=== PATIENT | male | born 1975 | race Caucasian/White ===

== ENCOUNTER 2016-09-17 06:19 | Day surgery (SDC) | payer OTHER ==
--- NOTE | 2016-09-16 11:02 | PCM.ANEPRE ---
Anesthesia Pre-Op Review Reason for Review: BMI > 45 Anesthesia Recommendations: Proceed with Procedure Additional Comments 41y M with super morbid obesity, HTN, DM, OWEN scheduled for sural nerve biopsy. He has peripheral neuropathy causing decreased sensation to the level of the knees bilaterally R>L. No further w/u is indicated. Have patient bring CPAP with him. Heri Sharma MD Sep 16, 2016 11:02
[~2016-09-17] VITALS: Ht 172.7 cm; Wt 150.9 kg
[2016-09-17] MEDS: Lactated Ringer's 1,000 ML IV SCH ×2 (05:39→09:23)
[~2016-09-17 06:19] MED LIST: CHLO50TA PO; CeFAZolin Inj 2 GM in IV Premix 1 EACH IV ONE; CeFAZolin Inj 3 GM in IV Premix 1 EACH IV SCH; GABA-504 PO; IBUP800T28 PO; LISI-567 PO; METF1000 PO
[2016-09-17] MEDS ORDERED: Propofol 10,000 mCg/mL 20 mL Inj ONE (06:20)
[2016-09-17] MEDS ORDERED: Ketamine 10 mg/mL 20 mL Inj ONE (06:20)
[2016-09-17 07:27] VITALS: BP 155/91; PULSE 93; RESP 18; O2SAT 96
--- NOTE | 2016-09-17 07:50 | PCM.HPANE ---
Patient Data Surgeon Admitting Provider: Attending Provider:Raji Razo MD Primary Care Physician:Heri Moreau MD Other Provider:[facility] Reason for Visit Polyneuropathy Ht/WT & BMI Height (Feet): 5 Height (Inches): 8.00 Weight (Kilograms): 150.9 Body Mass Index 50.00 Allergies Coded Allergies: codeine (Verified Allergy, Severe, SWELLING, N&V, 09/15/16) Past Anesthesia History Anesthesia History: Denies:: Abnormal Airway, Anesthesia Reactions, Difficult Intubation, Malignant Hyperthermia Diabetes History Hx Diabetes?: Yes Type of Diabetes: Type II Glycemic Control: Oral Medication Current Bedside Blood Glucose: 107 MRSA MRSA: No Medications Hypertension Medication: Yes (LISINOPRIL,CHLORTHALIDONE) Home Meds Incl Beta [place]: No Reported Medications Lisinopril 20 Mg [id number] Mg PO DAILY 30 Days Ref 0 09/15/16 Ibuprofen 800 Mg [id number] Mg PO TID PRN For Pain Ref 0 09/15/16 Gabapentin 400 Mg [id number] Mg PO TID Ref 0 09/15/16 Chlorthalidone 50 Mg [id number] Mg PO DAILY 09/15/16 Discontinued Reported Medications Metformin (Glucophage)1,000 Mg Tablet1,000 Mg PO QPM Ref 0 09/15/16 History History of ENT Problems?: No Hx of Heart Problems?: Yes Cardiovascular History: Positive for:: Chest Pain (02/2004-PROB R/T URI/COUGH) Edema (LE) Hypertension Denies:: Heart Murmur Hx of Respiratory Problem?: Yes Respiratory History: Positive for:: Use of C-PAP Machine (OWEN+ W/ CPAP SLEEP STUDY 04/2016) Hx Neurologic Problems?: Yes Other Neurological Pertinent: POLYNEUROPATHY=CURRENT PROBLEM C/OF NEUROPATHY IN LEGS R>L, HANDS HX REFERRAL TO [facility] 01/2016 Hx of GI Problems?: Yes Other GI Pertinent History: OBESITY Hx of Problems?: No Male Hx: Denies:: Prostate Problems Scrotal Mass Testicular Surgery Skin History: Positive for:: History Skin Disorders? (ERYTHEMA LOWER LEGS) Denies:: Pressure Ulcers Hx Musculoskeletal Problems?: Yes Musculoskeletal History: Positive for:: Osteoarthritis (C/OF LT ANKLE ARTHROPATHY S/P CORTISONE INJ S/P LT KNEE MENISECTOMY) Denies:: Back Injury (C/OF BACK PAIN) Hx of Psycho/Social Problems?: No Hx Surgeries?: Yes (LT KNEE MENISECTOMY) Hx Any Other Health Problems?: Yes Other History: Denies:: Cancer Endocrine Disease Hospitalization Thyroid Disease History Blood Transfusions: Denies:: Blood Transfusions Hx Diabetes: YesBedside Blood Glucose: 107 Hx Alcohol Use: YesAlcoholic Drinks Per Day: 2/DAYHave You Smoked inLast 12 mo : NoApprox How Many Cigarettes/day: 20YR HX OF SMOKING Stop/Bang Treated for Sleep Apnea?: Yes Do You Have a CPAP Machine?: Yes S-Snoring: Do You Snore Loudly: Yes T-Tired: feel tired, fatigued: Yes O-Obsered: Observed not breath: Yes P-Blood Pressure: treated: Yes B- Body Mass Index > 35 kg/m2: Yes A- Age over 50: No N- Neck Large Circumference: Yes G- Gender Male: Yes OWEN Total Score: 7 OWEN Risk Assessment: High Risk, =/>3 Yes OWEN Category 4 OutPt Procedure: Yes Risk Assessment Category Category 1A: Patient has history of documented sleep apnea, and HAS NOT received any narcotic, sedative or anesthesia administration during this stay. Category 1B: Patient has history of documented sleep apnea, and HAS received any narcotic , sedative or anesthesia administration during this stay Category 2: Patient has SUSPECTED Obstructive Sleep Apnea, and HAS received any narcotic , sedative or anesthesia administration during this stay. Category 3: Patient has SUSPECTED Obstructive Sleep Apnea and HAS NOT received narcotic, sedative or anesthesia administration during this stay. Category 4: Outpatient in Procedural Areas with known sleep apnea or who screen positive for High Risk via the STOP/BANG questionnaire. Exam Exam Vital Signs Vital Signs Date Time Temp Pulse Resp B/P Pulse Ox O2 Delivery O2 Flow Rate FiO2 09/17/16 07:27 CPAP/BIPAP 09/17/16 07:27 36.4 93 18 155/91 96 Room Air General Appearance: Alert, Oriented X3, Cooperative, No Acute Distress HEENT/AIRWAY: MP 2 Lungs: Clear to Auscultation, Normal Air Movement Heart: Exam Unremarkable, Regular Rate/Rhythm, No Murmurs/Rubs/Gallops Meds/Labs/Diagnostics Admission Meds Current Medications Lactated Ringer's (Lr) 1,000 ml @ 120 mls/hr Q8H20M IV Last administered on t 05:39; Start 09/17/16 at 05:00; Stop 09/17/16 at 13:19 Bedside Blood Glucose: 107 Plan Impression Patient chart reviewed, patient interviewed and anesthestic plan with risks, benefits, and alternatives discussed, and informed consent obtained. NPO Status: 09/16 at 1600 ASA Physical Status: ASA3 Severe Disease (BMI 50) Anesthetic Plan: MAC Bene/Risks/Altern/Consents: Yes HP Complete Prior to Induction: Yes Ziggy Alcantar MD Sep 17, 2016 07:50
[2016-09-17] MEDS ORDERED: Bupivacaine 0.5%/EPI 50 mL Inj INFILTRATE ONE (09:08)
[2016-09-17] MEDS ORDERED: Lactated Ringer's 1,000 ML IV SCH (09:21)
[2016-09-17] MEDS ORDERED: Lactated Ringer's 500 ML IV PRN (09:21)
--- NOTE | 2016-09-17 09:23 | PCM.DISURG ---
Surgical Discharge Instruction Date of Service Sep 17, 2016 Dates of Hospitalization Date of Hospital Admission Providers Admitting Physician: Primary Care Physician: Heri Moreau MD Attending Physician: Raji Razo MD Discharge Diagnosis Discharge Diagnosis Peripheral neuropathy Diet Discharge Diet: No restrictions Activity Discharge Activity-General: No restrictions Dressing and Incisional Care Dressing Instructions: Dermabond will peel off gradually Hygiene: May shower Follow Up Plan Follow Up Plan In the general surgery [place] postoperative clinic in 2-4 weeks for a wound check. Pathology will need to be discussed with the neurologist. Call your provider for: Fever (over 101.5), Discharge @ incision, pus discharge Raji Razo MD Sep 17, 2016 09:23
[2016-09-17] MEDS ORDERED: Phenylephrine 10,000 mCg/mL Inj IVPUSH PRN (09:25)
[2016-09-17] MEDS ORDERED: Ondansetron 2 mg/mL 2 mL Inj IVPUSH PRN (09:25)
[2016-09-17] MEDS ORDERED: fentaNYL-PF 50 mCg/mL 2 mL Inj IVPUSH PRN (09:25)
[2016-09-17] MEDS ORDERED: Dexamethasone 4 mg/mL Inj IVPUSH PRN (09:25)
[2016-09-17] MEDS ORDERED: EPHEDrine Sulfate 50 mg/mL Inj IVPUSH PRN (09:25)
[2016-09-17] MEDS ORDERED: MetoCLOpramide 5 mg/mL 2 mL Inj IVPUSH PRN (09:25)
[2016-09-17] MEDS ORDERED: oxyCODONE-Acetamin 5-325 mg Tablet PO PRN (09:25)
--- NOTE | 2016-09-17 09:29 | PCM.SURGOP ---
Surgical Operative Report Date of Service: Sep 17, 2016 Pre Operative Diagnosis Peripheral neuropathy Post Operative Diagnosis Same Procedure: Right sural nerve biopsy Surgeon and Outside Upholsterer: Surgeon: Raji Razo MD Assistants: Anu Haynes PA-C Indication for Procedure 41-year-old man who has had progressive peripheral neuropathy affecting the right leg greater than the left. He underwent nerve conduction studies which showed no response in the right sural nerve, and sensorimotor polyneuropathy. After discussion of risks and benefits, he agreed to proceed with right sural nerve biopsy. Findings: The nerve was grossly normal. He definitely had intact sensation when the nerve was clamped and divided. Procedure Details Procedural sedation was achieved. He was positioned in the supine position with bump under the right hip, and the right leg was prepped and draped in wide sterile fashion. A procedural pause was performed according to the SCOAP checklist, and all were found to be in agreement. A longitudinal incision was made on the right distal leg, just lateral to the right Achilles tendon. Dissection was carried down through the subcutaneous tissue and skin flaps were raised. Just lateral to the right Achilles tendon, the right sural nerve was visualized and dissected free from the surrounding tissues. Distally, it was dissected to the point where it branched into the various foot branches. 4 cm of nerve was dissected free. The proximal end was clamped and divided, and the cut end of the nerve was ligated with a 2-0 silk suture. The distal end was clamped, and divided. Again, the cut end was ligated with a 2-0 silk suture. The nerve was secured to a tongue blade, and sent for pathology evaluation at the [facility] according to the sural nerve biopsy protocol. Hemostasis was adequate. The incision was closed with interrupted deep dermal 3-0 Vicryl sutures, and a running 4-0 Monocryl subcuticular stitch. Dermabond was applied to the skin as a dressing. At the end the case all needle and sponge counts were correct 2. The patient was awakened from anesthesia without difficulty, and taken to the recovery room in satisfactory condition, having tolerated the procedure well. Complications There were no periprocedural complications identified. Surgical Specimen Removed: Yes Specimen sent to Pathology: Yes Surgical Specimen description: Right sural nerve Anesthetic Plan: MAC Grafts, Implants: None Output, Estimated Blood Loss: 5 Blood Administration during fisher: No Drains: None Catheters: None copies to: Heri Moreau MD; Nithin Thomas MD, Joshua D MD Sep 17, 2016 09:29
[2016-09-17 09:37] VITALS: BP 147/105; PULSE 85; RESP 16; O2SAT 98
--- NOTE | 2016-09-17 11:41 | PCM.ANEP1 ---
Post Anesthesia Phase 1 PACU Phase 1 Assessment Date of Service: Sep 17, 2016 Vital Signs Vital Signs Date Time Temp Pulse Resp B/P Pulse Ox O2 Delivery O2 Flow Rate FiO2 09/17/16 09:37 36.4 85 16 147/105 98 Room Air 09/17/16 07:27 CPAP/BIPAP 09/17/16 07:27 36.4 93 18 155/91 96 Room Air Anesthetic Administered: MAC Level of Alertness: Awake, talking SIMEON's with Equal Strength: Yes Pain: No Nausea or Vomiting: No Oxygen Delivery: Simple Mask Lungs: Clear to Auscultation, Normal Air Movement Dermatome Level: Full Sensation Ziggy Alcantar MD Sep 17, 2016 11:41
--- NOTE | 2016-09-17 11:42 | PCM.ANEP2 ---
Post Anesthesia Evaluation ASA/CMS Post Anesthesia VS in Patient's Normal Range?: Yes Resp Stable; Airway Patent?: Yes CV Function & Hydration Stable: Yes Mental Status Recovered?: Yes Pain control Satisfactory?: Yes N/V Control Satisfactory?: Yes Ziggy Alcantar MD Sep 17, 2016 11:42
== END 2016-09-17 23:59 | disposition home or self-care (01) ==
LOC: SAS 06:19
PROVIDERS: ATTEND Student in an Organized Health Care Education/Training Program
DX: G62.9 Polyneuropathy, unspecified (principal); R60.0 Localized edema; I10 Essential (primary) hypertension; E11.9 Type 2 diabetes mellitus without complications; M19.90 Unspecified osteoarthritis, unspecified site; G47.33 Obstructive sleep apnea (adult) (pediatric); E66.01 Morbid (severe) obesity due to excess calories; Z68.43 Body mass index [BMI] 50.0-59.9, adult; Z87.891 Personal history of nicotine dependence; Z79.84 Long term (current) use of oral hypoglycemic drugs
CPT/HCPCS: 64795; J0690; J7120